=== PATIENT | female | born 1990 | race Two or more races ===

== ENCOUNTER 2021-07-09 12:11 | Emergency (ER) | payer SELFPAY ==
[~2021-07-09] VITALS: Ht 157.5 cm; Wt 81.6 kg
[2021-07-09 13:34] LABS: Basophils # (auto) 0 10 ^3/uL (0-0.2); Basophils % (auto) 0.3 % (0.0-2.0); Eosinophils # (auto) 0 10 ^3/uL (0-0.8); Eosinophils % (auto) 0.4 % (0.0-7.0); Hematocrit 36.8 % (36.0-46.0); Hemoglobin 12.5 g/dL (12.2-16.2); Lymphocytes # (auto) 1.9 10 ^3/uL (0.4-5.4); Lymphocytes % (auto) 20.1 % (10.0-50.0); Mean Corpuscular Hemoglobin 27.7 pg (28.0-32.0); Mean Corpuscular Hgb Conc. 33.9 g/dL (32.0-36.0); Mean Corpuscular Volume 81.9 fL (80.0-100.0); Monocytes # (auto) 0.7 10 ^3/uL (0-1.3); Monocytes % (auto) 6.9 % (0.0-12.0); Neutrophils # (auto) 6.8 10 ^3/uL (1.6-8.6); Neutrophils % (auto) 72.3 % (37.0-80.0); Nucleated Red Blood Cells % 0.1 %; Red Blood Cells 4.49 10^6/uL (4.0-5.20); Red Cell Distribution Width 14.3 % (11.8-14.3); White Blood Cell 9.4 10^3/uL (4.4-10.8)
[2021-07-09 13:42] LABS: Urine Bacteria NONE SEEN /hpf (None Seen); Urine Blood 1+ /uL (Negative); Urine Mucus FEW (None Seen); Urine Specific Gravity 1.028 (1.001-1.035); Urine WBC 5 /hpf (0 - 5)
[2021-07-09 13:59] VITALS: BP 125/85
== END 2021-07-09 15:11 | disposition home or self-care (01) ==
LOC: ER 12:11
DX: O20.0 Threatened abortion (principal); Z3A.01 Less than 8 weeks gestation of pregnancy; Z88.1 Allergy status to other antibiotic agents
CPT/HCPCS: 36415; 76801; 81001; 81025; 84702; 85025

== ENCOUNTER 2024-12-03 17:44 | Emergency (ER) | payer OTHER, MEDICAID ==
[~2024-12-03] VITALS: Ht 157.5 cm; Wt 81.6 kg
[2024-12-03] MEDS: methylPREDNISolone SOD SUCC 125 MG/2 ML VL IM ONE (19:38)
[2024-12-03] MEDS ORDERED: PRED20TA2 PO (19:39)
[2024-12-03] MEDS ORDERED: AZIT-43 PO (19:39)
--- NOTE | 2024-12-03 19:42 | ED.PDOC ---
SOB-HPI HPI Comments 34-year-old female presents to ER with complaints of cough x1 month. Patient reports that she has been experiencing a dry cough x1 month. States she's been using an albuterol inhaler and "steroids" for her symptoms without relief. Denies any pain and presents to ER afebrile, ambulatory, in no distress. 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 History Family History Family History: Unknown Social History Smoker: Non-Smoker Alcohol: Occasionally Drugs: Denies Drug Use Lives In: Home Constitutional: denies: chills, diaphoresis, fatigue, fever, malaise, sweats, weakness, others EENTM: denies: blurred vision, double vision, ear bleeding, ear discharge, ear drainage, ear pain, ear ringing, eye pain, eye redness, hearing loss, mouth pain, mouth swelling, nasal discharge, nose bleeding, nose congestion, nose pain, photophobia, tearing, throat pain, throat swelling, voice changes, others Respiratory: reports: others (As stated in HPI) Cardiovascular: denies: chest pain, dizzy spells, diaphoresis, Dyspnea on exertion, edema, irregular heart beat, left arm pain, lightheadedness, palpitations, PND, syncope, others Gastrointestinal: denies: abdomen distended, abdominal pain, blood streaked bowels, constipated, diarrhea, dysphagia, difficulty swallowing, hematemesis, melena, nausea, poor appetite, poor fluid intake, rectal bleeding, rectal pain, vomiting, others Genitourinary: denies: abnormal vagina bleeding, burning, dyspareunia, dysuria, flank pain, frequency, hematuria, incontinence, pain, , vagina discharge, urgency, others Neurological: denies: dizziness, fainting, headache, left sided numbness, left sided weakness, numbness, paresthesia, pre-existing deficit, right sided numbness, right sided weakness, seizure, speech problems, tingling, tremors, weakness, others Musculoskeletal: denies: back pain, gout, joint pain, joint swelling, muscle pain, muscle stiffness, neck pain, others Integumetry: denies: bruises, change in color, change in hair/nails, dryness, laceration, lesions, lumps, rash, wounds, others Allergic/Immunocompromised: denies: Difficulty Healing, Frequent Infections, Hives, Itching, others Hematologic/Lymphatic: denies: anemia, blood clots, easy bleeding, easy bruising, swollen glands, others Endocrine: denies: excessive hunger, excessive sweating, excessive thirst, excessive urination, flushing, intolerance to cold, intolerance to heat, unexplained weight gain, unexplained weight loss, others Psychiatric: denies: anxiety, bipolar disorder, depression, hopeless, panic disorder, schizophrenia, sleepless, suicidal, others Physical Exam General Appearance: No Apparent Distress HEENT: Normal ENT Inspection, PERRL/EOMI, Pharynx Normal, TMs Normal Neck: Full Range of Motion, Non-Tender, Normal Respiratory: Chest Non-Tender, Decreased Breath Sounds (Slightly noted to bilateral upper lung padron), Lungs Clear, No Accessory Muscle Use, No Respiratory Distress Cardiovascular: No Murmur, No Gallop, Regular Rate/Rhythm Breast Exam: Deferred Gastrointestinal: NOT DONE Genitalia: Deferred Pelvic: Deferred Rectal: Deferred Extremities: Normal capillary refill, Normal range of motion Neurologic: Alert, 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 Was a procedure done?: No Sedation Sedation?: No Differential Dx Differential Diagnosis: Pneumonia, Pulmonary Embolism, Respiratory Distress X-Ray, Labs, Meds, VS Vital Signs Date Time Temp Pulse Resp B/P (MAP) Pulse Ox O2 Delivery O2 Flow Rate FiO2 12/03/24 20:48 98.0 82 19 139/99 (112) 97 98.0 12/03/24 20:48 82 19 97 12/03/24 19:51 20 98 Room Air* 0 21 12/03/24 19:39 162/112 12/03/24 19:21 89 19 96 Room Air 12/03/24 19:21 98.0 89 19 162/112 (129) 96 98.0 12/03/24 17:47 Room Air* 0 21 12/03/24 17:47 97.7 95 17 173/133 97 97.7 Current Medications Medications (Trade) Dose Ordered Sig/Medhat Route Start Time Stop Time Status Last Admin Methylprednisolone Sodium Succinate (Solu Medrol) 125 mg ONCE ONCE IM 12/03/24 19:30 12/03/24 19:31 DC 12/03/24 19:38 Clonidine HCl (Catapres Tablet) 0.1 mg ONCE ONCE PO 12/03/24 19:30 12/03/24 19:31 DC 12/03/24 19:39 Albuterol (Ventolin Medneb) 5 mg ONCE ONCE NEB 12/03/24 19:30 12/03/24 19:31 DC 12/03/24 19:50 Ipratropium [place] (Atrovent Medneb) 0.5 mg ONCE ONCE NEB 12/03/24 19:30 12/03/24 19:31 DC 12/03/24 19:50 PregnaPATIENT: BEATRICE ELIZABETHYACCT: [id number]: [id number] : 1990 LOC: ER ROOM / BED: / AGE / SEX: 34 / F ADM STATUS: REG ER SERVICE 27 ORDERING PHYSICIAN: VINNY MARIN PROCEDURE(s): CXR2 - CHEST TWO VIEWS ROUTINE REASON: cough ORDER NUMBER(s): [id number], ACCESSION NUMBER(s): [id number] EXAM: XY CHEST TWO VIEWS ROUTINE CLINICAL HISTORY: cough TECHNIQUE: Single AP view of the chest WID: COMPARISON: None FINDINGS: Lines and tubes: None Chest: The heart size and pulmonary vasculature is within normal limits. No pleural effusion, pneumothorax, or consolidation. The osseous structures are grossly intact. IMPRESSION: 1. No acute cardiopulmonary abnormality. ATED BY: STANFORD JIMENEZ MD DICTATED DATE/TIME: 12/03/242033 SIGNED BY: STANFORD JIMENEZ MD SIGNED DATE/TIME: 12/03/242033 CC: waiver signed Chest x-ray reviewed Duo nebulizer treatment ordered Solu-Medrol 125 mg IM ordered Clonidine 0.1 mg p.o. ordered Patient had improvement in symptoms and in no distress prior to discharge Advised to drink plenty of fluids Advised to follow up with PCP in 1-2 days Patient verbalized understanding and agreeable with current plan of care Advised to return to ER immediately if symptoms worsen Images Reviewed?: Images reviewed and evaluated by me Time of 1ST Reevaluation: 19:12 Reevaluation 1ST: N/A Patient Education/Counseling: Diagnosis, Treatment, Prognosis, Need For Follow Up Family Education/Counseling: No Family Present SEPSIS Sepsis Screen Date sepsis recognized/suspect: Dec 03, 2024 Time Sepsis recognized/suspect: 1746 Recent Procedure: No On Antibiotic Therapy: No Respiratory Rate >20: No Heart Rate >90: No Temp<36 C (96.8 F) or >38.3 C: No SBP <90 or MAP <65 mmHG: No New Acute Mental Status Change: No Is the patient on CPAP, BIPAP,: No Physician Orders Chest Two Views Routine (12/03/24 19:28) Vital Signs Date Time Temp Pulse Resp B/P (MAP) Pulse Ox O2 Delivery O2 Flow Rate FiO2 12/03/24 20:48 98.0 82 19 139/99 (112) 97 98.0 12/03/24 20:48 82 19 97 12/03/24 19:51 20 98 Room Air* 0 21 12/03/24 19:39 162/112 12/03/24 19:21 89 19 96 Room Air 12/03/24 19:21 98.0 89 19 162/112 (129) 96 98.0 12/03/24 17:47 Room Air* 0 21 12/03/24 17:47 97.7 95 17 173/133 97 97.7 Medications Medications Dose Ordered Sig/Medhat Route Start Time Stop Time Status Last Admin Dose Admin Albuterol 5 mg ONCE ONCE NEB 12/03/24 19:30 12/03/24 19:31 DC 12/03/24 19:50 Clonidine HCl 0.1 mg ONCE ONCE PO 12/03/24 19:30 12/03/24 19:31 DC 12/03/24 19:39 Ipratropium [place] 0.5 mg ONCE ONCE NEB 12/03/24 19:30 12/03/24 19:31 DC 12/03/24 19:50 Methylprednisolone Sodium Succinate 125 mg ONCE ONCE IM 12/03/24 19:30 12/03/24 19:31 DC 12/03/24 19:38 Departure 1 Departure Time of Disposition: 19:38 Impression: Primary Impression: Acute bronchitis Qualified Codes: J20.9 - Acute bronchitis, unspecified Disposition: 01 HOME / SELF CARE / HOMELESS Condition: Stable e-Prescriptions Prednisone (Prednisone) 20 Mg Tab 20 MG PO BID for 5 Days, #10 TAB 0 Refills Prov: VINNY MARIN 12/03/24 Azithromycin (Azithromycin) 250 Mg Tab 250 MG PO DAILY MDD 500 for 5 Days, #6 TAB 0 Refills 2 TABLETS ORALLY ON DAY ONE, THEN 1 TABLET ORALLY DAILY FOR 4 DAYS Prov: VINNY MARIN 12/03/24 Discharged With: Self Critical Care Note Critical Care Time?: No Stability Stability form required: No Heart Score Heart Score: Heart Score Response (Comments) Value History N/A 0 EKG N/A 0 Age N/A 0 Risk Factors N/A 0 Troponin N/A 0 Total 0 VINNY MARIN Dec 03, 2024 19:42
[2024-12-03] MEDS: ALBUTEROL SULF 2.5 MG/0.5ML(0.5%) NEB SOLN NEB ONE (19:50)
[2024-12-03] MEDS: IPRATROPIUM BROM 0.5 MG/2.5ML INH SOL NEB ONE (19:50)
--- NOTE | 2024-12-03 20:36 | DVH ---
EXAM: XY CHEST TWO VIEWS ROUTINE CLINICAL HISTORY: cough TECHNIQUE: Single AP view of the chest WID: COMPARISON: None FINDINGS: Lines and tubes: None Chest: The heart size and pulmonary vasculature is within normal limits. No pleural effusion, pneumothorax, or consolidation. The osseous structures are grossly intact. IMPRESSION: 1. No acute cardiopulmonary abnormality.
[2024-12-03 20:48] VITALS: BP 139/99; PULSE 82; RESP 19; TEMP 98; O2SAT 97
== END 2024-12-03 20:51 | disposition home or self-care (01) ==
LOC: ER 17:44
DX: J20.9 Acute bronchitis, unspecified (principal); F10.90 Alcohol use, unspecified, uncomplicated; Z90.49 Acquired absence of other specified parts of digestive tract; Z98.890 Other specified postprocedural states; Y90.9 Presence of alcohol in blood, level not specified
CPT/HCPCS: 71046; 94640; 96372; 99283; J2919